=== PATIENT | female | born 1935 | race African-American/Black ===

== ENCOUNTER 2016-08-21 21:58 | Emergency (ER) | payer MEDICARE, OTHER ==
[2016-08-21 23:34] LABS: BASOPHIL 0.8 % (0-2); EOSINOPHIL 0.9 % (0-7); HCT 27.5 % (37.0-47.0); HGB 8.3 g/dl (12.5-16.0); MCH 27.5 pg (25.0-31.0); MCHC 30.2 g/dL (32.0-36.0); MCV 91.1 fL (78.0-100.0); MONOCYTE 5.2 % (0-12); MPV 11.4 fL (6.0-9.5); NEUTROPHIL 70.1 % (41-80); PLT 226 K/uL (150-400); RBC 3.02 M/uL (4.20-5.40); RDW 18.5 % (11.5-14.0); WBC 11.1 K/uL (4.0-10.5)
[2016-08-21 23:41] LABS: TROPONIN T 0.041 ng/mL
[2016-08-21 23:42] LABS: ALBUMIN 2.9 g/dL (3.4-4.8); BILIRUBIN - TOTAL 0.2 mg/dL (0.1-1.0); CREATININE 0.6 mg/dL (0.5-1.0); GLOBULIN (CALCULATION) 3.7 g/dL (2.2-4.2); POTASSIUM 4.6 mmol/L (3.5-5.1); TOTAL PROTEIN 6.6 g/dL (6.4-8.3)
== END 2016-08-22 04:45 | disposition home or self-care (01) ==
LOC: FER 21:58
PROVIDERS: Emergency Medicine
DX: J90 Pleural effusion, not elsewhere classified (principal); R19.7 Diarrhea, unspecified; I10 Essential (primary) hypertension; I69.954 Hemiplegia and hemiparesis following unspecified cerebrovascular disease affecting left non-dominant side; Z79.899 Other long term (current) drug therapy; Z79.82 Long term (current) use of aspirin; Z79.01 Long term (current) use of anticoagulants; Z95.810 Presence of automatic (implantable) cardiac defibrillator
CPT/HCPCS: 36415; 36600; 70450; 71020; 80053; 82803; 83880; 84484; 85025; 93005

== ENCOUNTER 2016-08-24 14:34 | Inpatient (IN) | payer OTHER ==
--- NOTE | 2016-08-24 15:34 | NUR ---
PATIENT DIRECT ADMIT HOSPICE PATIENT FOR END OF LIFE COMFORT CARE. PER REPORT FROM MERCHANDISING CONSULTANT, PATIENT WAS EXPERIENCING UNCONTROLLED PAIN AT HOME AND FAMILY DOES NOT WISH FOR PATIENT TO AT HOME
--- NOTE | 2016-08-25 22:54 | NUR ---
NOTIFIED YESSI OF PATIENT PASSING AT 1942. HOSPICE CALLED AT 1944, DOUBLE CHECKED BY 2ND RN (HENRICO) HALEY ROBB
== END 2016-08-25 22:05 | disposition expired | DRG 65 ==
LOC: FMS 14:34
PROVIDERS: ADMIT Internal Medicine
DX: I63.511 Cerebral infarction due to unspecified occlusion or stenosis of right middle cerebral artery (principal); E44.0 Moderate protein-calorie malnutrition; L89.322 Pressure ulcer of left buttock, stage 2; G81.94 Hemiplegia, unspecified affecting left nondominant side; E11.9 Type 2 diabetes mellitus without complications; Z93.1 Gastrostomy status; I10 Essential (primary) hypertension; Z79.4 Long term (current) use of insulin; Z79.01 Long term (current) use of anticoagulants; Z51.5 Encounter for palliative care; R45.1 Restlessness and agitation; Z66 Do not resuscitate
CPT/HCPCS: J2060; J2270